=== PATIENT | male | born 1965 | race Caucasian/White ===

== ENCOUNTER 2021-12-10 11:33 | Emergency (ER) | payer MEDICARE, OTHER, SELFPAY ==
[2021-12-10 11:49] VITALS: BP 140/98; PULSE 95; RESP 16; TEMP 36.9; O2SAT 98
--- NOTE | 2021-12-10 12:47 | CTR_ITS ---
PROCEDURE INFORMATION: Exam: CT Abdomen And Pelvis Without Contrast Exam date and time: 12/10/2021 1:19 PM Age: 56 years old Clinical indication: Abdominal pain; Generalized; Prior surgery; Surgery type: Left inguinal; Patient HX: Abd pain, n/v, diarrhea x 1 month, hiv + TECHNIQUE: Imaging protocol: Computed tomography of the abdomen and pelvis without contrast. Radiation optimization: All CT scans at this facility use at least one of these dose optimization techniques: automated exposure control; mA and/or kV adjustment per patient size (includes targeted exams where dose is matched to clinical indication); or iterative reconstruction. COMPARISON: No relevant prior studies available. RADIATION DOSE METRICS: Total DLP (mGy-cm): 1079.84 FINDINGS: Heart: Coronary artery atherosclerotic calcifications. Liver: Normal. No mass. Gallbladder and bile ducts: Cholelithiasis with possible mild gallbladder wall thickening, ultrasound could further evaluate this. Pancreas: Normal. No ductal dilation. Spleen: Normal. No splenomegaly. Adrenal glands: Normal. No mass. Kidneys and ureters: Normal. No hydronephrosis. Stomach and bowel: Unremarkable. No obstruction. No mucosal thickening. Appendix: No evidence of appendicitis. Intraperitoneal space: Unremarkable. No free air. No significant fluid collection. Vasculature: Unremarkable. No abdominal aortic aneurysm. Lymph nodes: Unremarkable. No enlarged lymph nodes. Urinary bladder: Unremarkable as visualized. Reproductive: Unremarkable as visualized. Bones/joints: Unremarkable. No acute fracture. Soft tissues: Small umbilical hernia containing edematous omentum, please correlate for reduction. Other findings: Small amount of nonspecific fluid in the pelvis. CT/CT abdomen pelvis wo con [id number] IMPRESSION: 1. Cholelithiasis with possible mild gallbladder wall thickening, ultrasound could further evaluate this. 2. Small umbilical hernia containing edematous omentum, please correlate for reduction. 3. Small amount of nonspecific fluid in the pelvis. 4. Coronary artery atherosclerotic calcifications.
--- NOTE | 2021-12-10 12:48 | W.ED.ABDPA2 ---
HPI - Abdominal Pain General: Chief Complaint: Abdominal Pain Stated Complaint: abd pain Time Seen by Provider: 12/10/21 12:36 Source: patient and family Mode of arrival: ambulatory History of Present Illness: This patient who is visiting here from [facility] is here for some symptomatic relief. He apparently has had waxing and waning abdominal pain for many months. Scribes the pain is predominantly burning in nature. He states his worsened over the last couple weeks and they are here and he is seeking some relief. He states there is no particular pattern it seems to worsen through the evening and overnight. He states he gets some nausea and occasionally vomits but not on a regular basis. 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 States at that time he was feeling pretty good but have gradually worsened over the past months as noted above. He is HIV positive and has a CD4 count below 500 and is taking usual regimen for that condition. He denies any history of gallbladder disease he has never had any abdominal surgeries. He is not any blood in his stools or blood in any vomitus. There is no food relationship to his symptoms and he does not use alcohol. He occasionally smokes marijuana. No known exposure to recent GI illness etc. No known history of peptic ulcer disease. Apparently has endoscopy scheduled in January in [place]. 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.); Denies: change in vision ENMT: Denies: throat pain, odynophagia or nasal congestion Card: Denies: chest pain, palpitations or irregular heart rhythm Resp: Denies: dyspnea, productive cough or non-productive cough GI: Reports: bloating; Denies: hematemesis, hematochezia or melena : Denies: flank pain, difficulty urinating, dysuria or urinary frequency Musc: Denies: neck pain, back pain or extremity pain Skin/Breast: Denies: rash or pruritus Neuro: Denies: headache(s), numbness in extremities or weakness in extremities Endo: Denies: polyuria or polydipsia Jesse/Lymph: Denies: easy bruising or easy bleeding Physical Exam Narrative: EXAM NARRATIVE: The patient makes good eye contact. His speech is goal-directed. Const: COMMON NORMALS: no acute distress and average body habitus GENERAL APPEARANCE: cooperative and comfortable HENMT: COMMON NORMALS: normocephalic, atraumatic, Normal nasal mucous membranes and turbinates present and moist oral mucous membranes HEAD & SCALP: normocephalic and atraumatic NOSE: Normal nasal mucous membranes and turbinates present Eye: COMMON NORMALS: Equal, round and reactive pupils present and conjunctivae normal CONJUNCTIVA: Yes conjunctivae normal PUPIL: Yes Equal, round and reactive pupils present Course Reevaluation(s): Reevaluation #1: CT scan did notice a small amount of possible omentum and a ventral hernia. I examined the patient after placing an ice pack on his anterior abdominal wall. I palpated his periumbilical tissues. No obvious bowel or other structures noted to be herniated through the abdominal wall at this time. He also reviewed his history given that he has some mild gallbladder wall thickening without any pericolic fluid etc. He does have a normal white count and normal total bilirubin. He does have some transaminitis as well as an elevation in his alk phos which may be due to his underlying HIV disease and/or its medications. Certainly no suggestion clinically at this time of acute cholecystitis. Given his history of abdominal pain which seems to be exacerbated by eating at times and relieved by liquid antacids momentarily there is a suggestion of perhaps gastritis is a contributing factor to his symptoms as well. He is certainly does not have any evidence at this time that requires further hospitalization or ED observation. Our plan will be to discharge him on his usual medications as well as a PPI for the next 2 weeks. They are headed back to [place] to his home where he has comprehensive medical care available to him and planned GI follow-up. At length discussion was guided for both he and his partner regarding current findings, follow-up recommendations as well as return precautions for increasing symptoms. Time: 15:11 Vital Signs: Vital signs: Vital Signs Temperature 98.4 F 12/10/21 11:49 Pulse Rate 95 12/10/21 11:49 Respiratory Rate 16 12/10/21 14:47 Blood Pressure 140/98 12/10/21 11:49 Pulse Oximetry 98 12/10/21 11:49 MDM - Abdominal Pain Medical Decision Making Patient visiting here on vacation from [facility] with history of progressive abdominal pain over weeks to months. Work-up here does not reveal any evidence of a acute surgical condition at this time. Symptoms complex suggest possible gastritis with the caveat of the other changes noted on his CT scan which were related to the patient but does not have any evidence at this time to suggest acute cholecystitis, ventral hernia or incarceration etc. Patient was started on proton pump inhibitor and discharged in stable condition for follow-up at home. Lab Data I reviewed the patient's lab results. : 12/10/21 14:19 12/10/21 14:19 Labs/Radiology: Radiology Impressions Abdomen/Pelvis CT 12/10/21 12:47 IMPRESSION: 1. Cholelithiasis with possible mild gallbladder wall thickening, ultrasound could further evaluate this. 2. Small umbilical hernia containing edematous omentum, please correlate for reduction. 3. Small amount of nonspecific fluid in the pelvis. 4. Coronary artery atherosclerotic calcifications. Laboratory Results WBC 4.4 10^3/uL (4.0-10.0) 12/10/21 14:19 RBC 4.12 10^6/uL (4.1-5.3) 12/10/21 14:19 Hgb 14.2 g/dL (11.7-16.6) 12/10/21 14:19 Hct 41.8 % (42.0-52.0) L 12/10/21 14:19 MCV 101.5 fl (80-94) H 12/10/21 14:19 MCH 34.5 pg (28.0-34.0) H 12/10/21 14:19 MCHC 34.0 g/dL (30.0-36.0) 12/10/21 14:19 RDW 12.6 % (12.1-15.1) 12/10/21 14:19 Plt Count 309 10^3/cmm (130-400) 12/10/21 14:19 MPV 10.7 fL (7.4-10.4) H 12/10/21 14:19 Neut % (Auto) 79.4 % 12/10/21 14:19 Lymph % (Auto) 10.2 % 12/10/21 14:19 Mccormick % (Auto) 6.8 % 12/10/21 14:19 Eos % (Auto) 2.0 % 12/10/21 14:19 Baso % (Auto) 1.4 % 12/10/21 14:19 Neut # (Auto) 3.51 10^3/uL (1.8-7.7) 12/10/21 14:19 Lymph # (Auto) 0.5 10^3/uL (0.8-4.8) L 12/10/21 14:19 Mccormick # (Auto) 0.3 10^3/uL (0.2-0.9) 12/10/21 14:19 Eos # (Auto) 0.1 10^3/uL (0.0-0.8) 12/10/21 14:19 Baso # (Auto) 0.1 10^3/uL (0.0-0.1) 12/10/21 14:19 Nucleated RBC % (auto) 0 % 12/10/21 14:19 Nucleated RBCs # 0.0 /100WBC 12/10/21 14:19 Sodium 138 mmol/L (136-145) 12/10/21 14:19 Potassium 5.1 mmol/L (3.5-5.1) 12/10/21 14:19 Chloride 100 mmol/L (98-107) 12/10/21 14:19 Carbon Dioxide 25 mmol/L (22-29) 12/10/21 14:19 Anion Gap 18.1 (5-19) 12/10/21 14:19 BUN 17 mg/dL (6-20) 12/10/21 14:19 Creatinine 1.1 mg/dL (0.7-1.2) 12/10/21 14:19 GFR Calculation 69.8 mL/min (90-130) L 12/10/21 14:19 Glucose 85 mg/dL (65-115) 12/10/21 14:19 Calculated Osmolality 287 mOsm/kg (285-295) 12/10/21 14:19 Calcium 8.9 mg/dL (8.5-10.5) 12/10/21 14:19 Total Bilirubin 0.5 mg/dL (0.15-1.2) 12/10/21 14:19 AST 154 U/L (0-40) H 12/10/21 14:19 ALT 110 U/L (0-41) H 12/10/21 14:19 Alkaline Phosphatase 906 IU/L (40-130) H 12/10/21 14:19 Total Protein 5.9 g/dL (6.6-8.7) L 12/10/21 14:19 Albumin 3.6 g/dL (3.5-5.2) 12/10/21 14:19 Globulin 2.3 g/dL (1.3-4.6) 12/10/21 14:19 Lipase 11 U/L (13-60) L 12/10/21 14:19 Discharge Plan Discharge Patient Disposition: Home Clinical Impression: Abdominal pain, Gastritis, Cholelithiasis Condition: Stable Prescriptions: New Protonix 40 mg tablet,delayed release (DR/EC) 40 mg PO BID 14 Days Qty: 28 0RF Discharge Orders: Discharge ED (Routine); Ordered 12/10/21 Ordered By: Andrea Montano Discharge Diet: Advance as tolerated Discharge Activity: Increase activity as tolerated Patient Instructions: Abdominal Pain (ED), Opioid Safety Activity Restrictions/Additional Instructions: Continue all your usual medications as prescribed. We have provided a acid reducing medication to take twice daily for the next 2 weeks. Follow-up with your regular doctor and rd lab technician upon return home in [place]. If prior to that time you develop fevers, increasing pain, intolerance of medication or any other concerns return to the nearest emergency department. Coding Level of Care Code ED Inspector [employer]romechanical for Keesha Elaine Exam Expanded Problem Focused
--- NOTE | 2021-12-10 13:24 | PC.NURSE ---
PT AT CT. WILL ATTEMPT TO START IV OBTAIN LABS AND ADM MEDS LATER.
[2021-12-10] MEDS: sodium chloride 0.9% 500 ML IV (14:19)
[2021-12-10] MEDS: pantoprazole 40 mg SDV IVP (14:19)
[2021-12-10 14:24] LABS: Basophils # 0.1 10^3/uL (0.0-0.1); Basophils % 1.4 %; Eosinophils # 0.1 10^3/uL (0.0-0.8); Hematocrit 41.8 % (42.0-52.0); Hemoglobin 14.2 g/dL (11.7-16.6); Lymphocytes # 0.5 10^3/uL (0.8-4.8); Lymphocytes % 10.2 %; Mean Corpuscular Hemoglobin 34.5 pg (28.0-34.0); Mean Corpuscular Volume 101.5 fl (80-94); Mean Platelet Volume 10.7 fL (7.4-10.4); Monocytes # 0.3 10^3/uL (0.2-0.9); Monocytes % 6.8 %; Neutrophils # 3.51 10^3/uL (1.8-7.7); Neutrophils % 79.4 %; Nucleated Red Blood Cells % 0 %; Platelet Count 309 10^3/cmm (130-400); Red Blood Count 4.12 10^6/uL (4.1-5.3); Red Cell Distribution Width 12.6 % (12.1-15.1); White Blood Count 4.4 10^3/uL (4.0-10.0)
[2021-12-10 14:30] VITALS: BP 134/101; PULSE 81; O2SAT 100
[2021-12-10 14:45] LABS: Alanine Aminotransferase 110 U/L (0-41); Albumin Level 3.6 g/dL (3.5-5.2); Alkaline Phosphatase 906 IU/L (40-130); Aspartate Amino Transferase 154 U/L (0-40); Blood Urea Nitrogen 17 mg/dL (6-20); Calcium 8.9 mg/dL (8.5-10.5); Carbon Dioxide 25 mmol/L (22-29); Chloride 100 mmol/L (98-107); Globulin 2.3 g/dL (1.3-4.6); Glomerular Filtration Rate 69.8 mL/min (90-130); Glucose 85 mg/dL (65-115); Lipase 11 U/L (13-60); Osmolality Calculated 287 mOsm/kg (285-295); Sodium 138 mmol/L (136-145); Total Bilirubin 0.5 mg/dL (0.15-1.2); Total Protein 5.9 g/dL (6.6-8.7)
[2021-12-10 14:47] VITALS: RESP 16
[2021-12-10] MEDS: fentaNYL 50 mcg/mL INJ 2mL IVP (14:47)
[2021-12-10 14:48] LABS: Anion Gap 18.1 (5-19); Potassium 5.1 mmol/L (3.5-5.1)
[2021-12-10 15:00] VITALS: BP 132/92; PULSE 74; RESP 99
== END 2021-12-10 15:31 | disposition home or self-care (01) ==
PROVIDERS: Emergency Provider Emergency Medicine
DX: K80.20 Calculus of gallbladder without cholecystitis without obstruction (principal); K29.70 Gastritis, unspecified, without bleeding
CPT/HCPCS: 74176; 80053; 83690; 85025; 96374; 96375; 99285; C9113; J3010; J7040